=== PATIENT | male | born 1960 | race Caucasian/White ===

== ENCOUNTER 2018-10-03 05:43 | Inpatient (IN) | payer OTHER ==
[2018-10-02 10:19] VITALS: BMI 31.7
[2018-10-03] MEDS ORDERED: Sodium Chloride 0.9% 10 ML ONE (06:24)
[2018-10-03] MEDS ORDERED: Levofloxacin 500 mg/D5W 100 ml Premix Bag ONE (06:26)
[2018-10-03] MEDS ORDERED: Clindamycin/D5W 900 mg/50 ml Premix Bag ONE (06:26)
[2018-10-03 06:27] LABS: #Basophils 0.1 thou/uL (0.0-0.2); #Eosinphils 0.2 thou/uL (0.0-0.7); #Monocytes 0.6 thou/uL (0.11-0.59); %Basophils 1.2 % (0.0-1.0); %Eosinophils 4.1 % (0.0-10.0); %Lymphocytes 21.5 % (21.0-51.0); %Monocytes 11.3 % (0.0-10.0); %Neutrophils 61.8 % (42.0-75.0); Hemoglobin 15.8 g/dL (14.0-18.0); Mean Corpuscular HGB CONC 34.2 g/dL (32.0-36.0); Mean Corpuscular Hemoglobin 31.7 pg (27.0-31.0); Mean Corpuscular Volume 92.4 fL (78.0-98.0); Mean Platelet Volume 7.9 fL (7.4-10.4); Platelet Count 220 thou/uL (130-400); RBC Distribution Width 11.7 % (11.5-14.5); Red Blood Cell (RBC) Count 4.99 mill/uL (4.70-6.10); White Blood Cell (WBC) Count 4.8 thou/uL (4.8-10.8)
[2018-10-03 06:45] LABS: Anion Gap 12 mmol/L (10-20); BUN (Urea Nitrogen) 15 mg/dL (8.4-25.7); Calc. Creatinine Clearance 154 mL/min (70-130); Calcium 9.1 mg/dL (7.8-10.44); Carbon Dioxide 24 mmol/L (22-29); Chloride 109 mmol/L (98-107); Estimated GFR-MDRD Greater than 90; Glucose 100 mg/dL (70-105); Potassium 4.2 mmol/L (3.5-5.1); Sodium 141 mmol/L (136-145)
[2018-10-03] MEDS ORDERED: Midazolam HCl 2 mg/2 ml Vial ONE (06:53)
[2018-10-03] MEDS ORDERED: Fentanyl 250 MCG/5 ML VIAL ONE (06:53)
[2018-10-03] MEDS ORDERED: Lidocaine 4% Topical Sol 50 ML BOT ONE (06:53)
[2018-10-03] MEDS ORDERED: SUGAMMADEX SODIUM 200 MG/2 ML VIAL ONE (07:15)
[2018-10-03] MEDS ORDERED: HYDROmorphone 2 MG/ML VIAL ONE (08:52)
[2018-10-03] MEDS ORDERED: Sodium Chloride 0.9% 1,000 ML IV SCH (09:43)
[2018-10-03] MEDS ORDERED: Promethazine HCl 25 MG/ML VIAL IM PRN ×2 (09:43→10:56)
[2018-10-03] MEDS ORDERED: Promethazine 25 MG TAB PO PRN ×2 (09:43→10:56)
[2018-10-03] MEDS ORDERED: Milk Of Magnesia 30 ML UDCUP PO PRN ×2 (09:43→10:56)
[2018-10-03] MEDS ORDERED: diphenhydrAMINE 50 MG/ML VIAL IVP PRN ×2 (09:43→10:56)
[2018-10-03] MEDS ORDERED: HYDROcodone/Acetaminophen 10/325 mg Tablet PO PRN ×3 (09:43→10:56)
[2018-10-03] MEDS ORDERED: Morphine 4 MG/ML VIAL SLOW IVP PRN ×2 (09:43→10:56)
[2018-10-03] MEDS ORDERED: Promethazine HCl 12.5 MG SUPP PR PRN ×2 (09:43→10:56)
[2018-10-03] MEDS ORDERED: traMADol HCl 50 MG TAB PO PRN ×3 (09:43→10:56)
[2018-10-03] MEDS ORDERED: Ondansetron PF 4 MG/2 ML Vial IM PRN ×2 (09:43→10:56)
[2018-10-03] MEDS ORDERED: Mag-Al 1200 mg/1200 mg/30 ML UDCUP PO PRN ×2 (09:43→10:56)
[2018-10-03] MEDS ORDERED: diphenhydrAMINE 25 MG CAP PO PRN ×2 (09:43→10:56)
[2018-10-03] MEDS ORDERED: Fentanyl 100 MCG/2 ML VIAL ONE (10:04)
--- NOTE | 2018-10-03 10:37 | OP ---
DATE OF PROCEDURE: 10/03/2018 INSURANCE ANALYST: Laverne Cullen PA-C PROCEDURE PERFORMED: L4 through S1 decompressive laminectomy, posterolateral arthrodesis pedicle screw instrumentation, L4 through S1, demineralized bone matrix, local morselized autograft. DESCRIPTION OF PROCEDURE: The patient was brought to the operating room and intubated. He was rolled in a prone position on gel-filled chest rolls. An incision was made exposing L4 through S1, and the level was confirmed by x-ray. We performed complete L5 superior S1 and inferior L4 laminectomies completely decompressing the neural elements from L4 to S1. There were bilateral pars defects and loose posterior elements at L5 as anticipated. After complete decompression had been achieved, we placed pedicle screws at L4, L5, and S1 bilaterally using lateral fluoroscopic guidance. Justice was secured between the screws, which we obtained a very modest reduction and significant distraction across the L5 neuroforamen. The justice was connected with nuts, which were final tightened. The wound was then extensively irrigated and MAC hemostasis was secured. A combination of demineralized bone matrix local morselized autograft was laid over the lamina and posterolateral surfaces for the purpose of arthrodesis. Vancomycin powder was applied, and the wound was closed in anatomic layers over drain. Job ID: [id number]
[2018-10-03] MEDS: Pyridostigmine Bromide IR 60 MG TAB PO SCH (10:47)
[2018-10-03] MEDS: Sodium Chloride 0.9% 1,000 ML IV SCH (11:22)
[2018-10-03] MEDS ORDERED: Acetaminophen 500 MG TAB PO PRN (11:33)
[2018-10-03] MEDS ORDERED: hydrALAZINE 20 MG/ML VIAL SLOW IVP PRN (11:33)
[2018-10-03] MEDS ORDERED: Benzonatate 100 MG CAP PO PRN (11:33)
[2018-10-03] MEDS ORDERED: hydrOXYzine 25 MG TAB PO PRN (11:33)
[2018-10-03] MEDS ORDERED: Artificial Tears 18 DROP/0.9 ML EA EYE PRN (11:33)
[2018-10-03] MEDS ORDERED: Diabetic Tussin 200 MG/10 ML UDCUP PO PRN (11:33)
[2018-10-03] MEDS ORDERED: Bisacodyl 5 MG TAB PO PRN (11:33)
[2018-10-03] MEDS ORDERED: cloNIDine 0.1 MG TAB PO PRN (11:33)
[2018-10-03] MEDS ORDERED: Senokot S 8.6-50 MG TAB PO PRN (11:33)
--- NOTE | 2018-10-03 11:53 | PDOC.PN ---
- Subjective Encounter Start Date: 10/03/18 Encounter Start Time: 11:51 Subjective: Seen And examined.Admitted to NS.Post Lumbar laminectomy -: PMH of Myesthenia and HTN.follows up with Dr Johnson.stable -: no new complaints.feels well.POD #0 - Objective MAR Reviewed: Yes Vital Signs & Weight: Vital Signs (12 hours) Temp Pulse Resp BP Pulse Ox 10/03/18 11:35 63 20 123/60 99 10/03/18 10:59 58 L 18 128/68 94 L 10/03/18 10:51 94 L 10/03/18 10:30 97.7 F 66 20 128/73 94 L Weight Weight 247 lb Result Diagrams: 10/03/18 06:20 10/03/18 06:20 Phys Exam - Physical Examination Constitutional: NAD HEENT: PERRLA, moist MMs, sclera anicteric, oral pharynx no lesions Neck: no nodes, no JVD, supple, full ROM Respiratory: no wheezing, no rales, no rhonchi, clear to auscultation bilateral Cardiovascular: RRR, no significant murmur Gastrointestinal: soft, non-tender, no distention, positive bowel sounds Musculoskeletal: no edema, pulses present Neurological: non-focal, normal sensation, moves all 4 limbs Psychiatric: normal affect, A&O x 3 Skin: no rash Dx/Plan (1) Hypertension Code(s): I10 - ESSENTIAL (PRIMARY) HYPERTENSION Status: Chronic Comment: stable .restart Cozaar and HCTZ (2) Myasthenia gravis Code(s): G70.00 - MYASTHENIA GRAVIS WITHOUT (ACUTE) EXACERBATION Status: Chronic Comment: stable. restart Mestinon and Azathioprine (3) S/P lumbar laminectomy Code(s): Z98.890 - OTHER SPECIFIED POSTPROCEDURAL STATES Status: Acute Comment: pain control and PT,OT per Primary team - Plan plan discussed w/ family, PT/OT, DVT proph w/SCDs HD stable. -: am labs -: IM team will follow * . Review of Systems - Review of Systems Constitutional: negative: fever, chills, sweats, weakness, malaise, other ENT: negative: Ear Pain, Ear Discharge, Nose Pain, Nose Discharge, Nose Congestion, Mouth Pain, Mouth Swelling, Throat Pain, Throat Swelling, Other Respiratory: negative: Cough, Dry, Shortness of Breath, Hemoptysis, SOB with Excertion, Pleuritic Pain, Sputum, Wheezing Cardiovascular: negative: chest pain, palpitations, orthopnea, paroxysmal nocturnal dyspnea, edema, light headedness, other Gastrointestinal: negative: Nausea, Vomiting, Abdominal Pain, Diarrhea, Constipation, Melena, Hematochezia, Other Genitourinary: negative: Dysuria, Frequency, Incontinence, Hematuria, Retention , Other Neurological: negative: Weakness, Numbness, Incoordination, Change in Speech, Confusion, Seizures, Other - Medications/Allergies Allergies/Adverse Reactions: Allergies Allergy/AdvReac Type Severity Reaction Status Date / Time Penicillins Allergy Rash Verified 10/02/18 10:20 Ubbqarq-Nns-Gnt Reductase Allergy JOINT PAIN Verified 10/02/18 10:20 Inhibitor AND "FELT TERRIBLE" Medications: Current Medications Acetaminophen (Tylenol) 1,000 mg PO Q6H PRN PRN Reason: Mild Pain (1-3) Hydrocodone Bitart/Acetaminophen ([place] 10/325) 1 tab PO Q4H PRN PRN Reason: PAIN (1-3) Hydrocodone Bitart/Acetaminophen ([place] 10/325) 2 tab PO Q4H PRN PRN Reason: PAIN (4-6) Hydrocodone Bitart/Acetaminophen ([place] 10/325) 1 tab PO Q4H PRN PRN Reason: PAIN (1-3) Hydrocodone Bitart/Acetaminophen ([place] 10/325) 2 tab PO Q4H PRN PRN Reason: PAIN (4-6) Al Hydroxide/Mg Hydroxide (Maalox) 30 ml PO Q4H PRN PRN Reason: Heartburn or Indigestion Artificial Tears (Tears Naturale) 2 drop EA EYE PRN PRN PRN Reason: Dry Eyes Azathioprine (Imuran) 50 mg PO QAM [place] Benzonatate (Tessalon) 100 mg PO Q6H PRN PRN Reason: Cough Bisacodyl (Dulcolax) 10 mg PO DAILYPRN PRN PRN Reason: Constipation Clonidine (Catapres) 0.1 mg PO Q4H PRN PRN Reason: SBP >160 ____ Diphenhydramine HCl (Benadryl) 25 mg PO Q6H PRN PRN Reason: Itching Diphenhydramine HCl (Benadryl) 25 mg IVP Q6H PRN PRN Reason: Itching Gabapentin (Neurontin) 300 mg PO QAM [place] Guaifenesin (Robitussin Sf) 200 mg PO Q4H PRN PRN Reason: Cough Hydralazine HCl (Apresoline) 10 mg SLOW IVP Q4H PRN PRN Reason: SBP > 180 and HR < 70 Hydrochlorothiazide (Hydrochlorothiazide) 25 mg PO DAILY [place] Hydrochlorothiazide (Hydrochlorothiazide) 25 mg PO QAM [facility] Hydroxyzine HCl (Atarax) 25 mg PO Q6H PRN PRN Reason: Itching Sodium Chloride (Normal Saline 0.9%) 1,000 mls @ 75 mls/hr IV .[id number] [facility] Last Admin: 10/03/18 10:47 Dose: Not Given Clindamycin Phosphate/Dextrose (900 mg/ Device) 50 mls @ 100 mls/hr IVPB Q8HR [place] Sodium Chloride (Normal Saline 0.9%) 1,000 mls @ 75 mls/hr IV .[id number] [facility] Last Admin: 10/03/18 11:22 Dose: Not Given Cefazolin Sodium/Dextrose 2 gm (/ Device) 50 mls @ 100 mls/hr IVPB Q8HR [facility] Losartan Potassium (Cozaar) 50 mg PO DAILY [facility] Losartan Potassium (Cozaar) 50 mg PO DAILY [facility] Magnesium Hydroxide (Milk Of Magnesium) 30 ml PO Q12H PRN PRN Reason: Constipation Magnesium Hydroxide (Milk Of Magnesium) 30 ml PO Q12H PRN PRN Reason: Constipation Morphine Sulfate (Morphine) 2 mg SLOW IVP Q1H PRN PRN Reason: Moderate Breakthrough Pain Morphine Sulfate (Morphine) 4 mg SLOW IVP Q1H PRN PRN Reason: SEVERE BREAKTHROUGH PAIN Morphine Sulfate (Morphine) 2 mg SLOW IVP Q1H PRN PRN Reason: Moderate Breakthrough Pain Morphine Sulfate (Morphine) 4 mg SLOW IVP Q1H PRN PRN Reason: SEVERE BREAKTHROUGH PAIN Ondansetron HCl (Zofran) 4 mg IM Q24H PRN PRN Reason: Nausea/Vomiting Ondansetron HCl (Zofran) 4 mg IM Q24H PRN PRN Reason: Nausea/Vomiting Promethazine HCl (Phenergan) 12.5 mg IM Q4H PRN PRN Reason: Nausea/Vomiting Promethazine HCl (Phenergan) 12.5 mg PO Q4H PRN PRN Reason: Nausea/Vomiting Promethazine HCl (Phenergan Suppository) 12.5 mg GA Q4H PRN PRN Reason: Nausea/Vomiting Promethazine HCl (Phenergan) 12.5 mg IM Q4H PRN PRN Reason: Nausea/Vomiting Promethazine HCl (Phenergan) 12.5 mg PO Q4H PRN PRN Reason: Nausea/Vomiting Promethazine HCl (Phenergan Suppository) 12.5 mg GA Q4H PRN PRN Reason: Nausea/Vomiting Pyridostigmine [place] (Mestinon) [facility] [place] Last Admin: 10/03/18 10:47 Dose: Not Given Pyridostigmine [place] (Mestinon) 60 mg PO QAM [facility] Pyridostigmine [place] (Mestinon) [facility] [place] Senna/Docusate Sodium (Senokot S) 2 tab PO BID PRN PRN Reason: Constipation Sodium Chloride (Flush - Normal Saline) 10 ml IVF Q12HR [place] Sodium Chloride (Flush - Normal Saline) 10 ml IVF PRN PRN PRN Reason: Saline Flush Tramadol HCl (Ultram) 50 mg PO Q6H PRN PRN Reason: PAIN (1-3) Tramadol HCl (Ultram) 100 mg PO Q6H PRN PRN Reason: PAIN (4-6) Tramadol HCl (Ultram) 50 mg PO Q6H PRN PRN Reason: PAIN (1-3) Tramadol HCl (Ultram) 100 mg PO Q6H PRN PRN Reason: PAIN (4-6)
[2018-10-03] MEDS ORDERED: Rocuronium Bromide 10 MG/ML (10ML VIAL) ONE (12:21)
[2018-10-03] MEDS ORDERED: Ketorolac Tromethamine 30 MG/ML VIAL ONE (12:21)
[2018-10-03] MEDS ORDERED: PROPOFOL 200 MG/20 ML VIAL ONE (12:21)
[2018-10-03] MEDS ORDERED: Ondansetron PF 4 MG/2 ML Vial ONE (12:21)
[2018-10-03] MEDS ORDERED: Lidocaine 1% PF 5 ML VIAL ONE (12:21)
[2018-10-03] MEDS ORDERED: ePHEDrine 50 MG/ML VIAL ONE (12:21)
[2018-10-03] MEDS ORDERED: Dexamethasone 20 MG/5 ML VIAL ONE (12:21)
[2018-10-03] MEDS: CEFAZOLIN 2 GM in Premix Bag 1 BAG IVPB SCH ×2 (13:15→21:26)
[2018-10-03] MEDS: Clindamycin/D5W 900 MG in Premix Bag 1 BAG IVPB SCH ×2 (13:54→23:23)
[2018-10-03] MEDS: HYDROcodone/Acetaminophen 10/325 mg Tablet PO PRN ×2 (14:15→21:19)
[2018-10-04] MEDS: Sodium Chloride 0.9% 1,000 ML IV SCH ×2 (01:00→12:08)
[2018-10-04] MEDS: CEFAZOLIN 2 GM in Premix Bag 1 BAG IVPB SCH ×3 (05:31→21:49)
[2018-10-04] MEDS: HYDROcodone/Acetaminophen 10/325 mg Tablet PO PRN ×2 (06:14→21:49)
[2018-10-04] MEDS: Clindamycin/D5W 900 MG in Premix Bag 1 BAG IVPB SCH ×3 (06:16→23:13)
[2018-10-04 06:49] LABS: #Lymphocytes 1.1 thou/uL (1.20-3.40); #Neutrophils 8.9 thou/uL (1.40-6.50); %Basophils 0.1 % (0.0-1.0); %Eosinophils 0.1 % (0.0-10.0); %Lymphocytes 9.7 % (21.0-51.0); %Monocytes 9.3 % (0.0-10.0); %Neutrophils 80.7 % (42.0-75.0); Hemoglobin 14.1 g/dL (14.0-18.0); Mean Corpuscular HGB CONC 33.7 g/dL (32.0-36.0); Mean Corpuscular Hemoglobin 31.5 pg (27.0-31.0); Mean Corpuscular Volume 93.5 fL (78.0-98.0); Mean Platelet Volume 8.3 fL (7.4-10.4); Platelet Count 214 thou/uL (130-400); RBC Distribution Width 11.7 % (11.5-14.5); Red Blood Cell (RBC) Count 4.48 mill/uL (4.70-6.10); White Blood Cell (WBC) Count 11.1 thou/uL (4.8-10.8)
[2018-10-04 07:09] LABS: Anion Gap 11 mmol/L (10-20); BUN (Urea Nitrogen) 13 mg/dL (8.4-25.7); Calc. Creatinine Clearance 144 mL/min (70-130); Calcium 9.1 mg/dL (7.8-10.44); Carbon Dioxide 30 mmol/L (22-29); Chloride 107 mmol/L (98-107); Estimated GFR-MDRD 87; Glucose 102 mg/dL (70-105); Potassium 4.8 mmol/L (3.5-5.1); Sodium 143 mmol/L (136-145)
[2018-10-04] MEDS: Gabapentin 300 MG CAP PO SCH (07:25)
[2018-10-04] MEDS: azaTHIOprine 50 MG TAB PO SCH (07:27)
[2018-10-04] MEDS: Losartan 25 MG TAB PO SCH (07:27)
[2018-10-04] MEDS: Pyridostigmine Bromide IR 60 MG TAB PO SCH ×2 (07:27→07:30)
[2018-10-04] MEDS: Hydrochlorothiazide 25 MG TAB PO SCH (08:33)
[2018-10-04] MEDS ORDERED: Losartan 25 MG TAB PO SCH (09:00)
[2018-10-04] MEDS ORDERED: Gabapentin 300 MG CAP PO SCH (09:00)
[2018-10-04] MEDS ORDERED: Hydrochlorothiazide 25 MG TAB PO SCH (09:00)
[2018-10-04] MEDS ORDERED: azaTHIOprine 50 MG TAB PO SCH (09:00)
[2018-10-04] MEDS ORDERED: Pyridostigmine Bromide IR 60 MG TAB PO SCH (09:00)
--- NOTE | 2018-10-04 10:49 | PDOC.PN ---
- Subjective Encounter Start Date: 10/04/18 Encounter Start Time: 08:10 -: old records requested/rev Patient seen and examined. No new complaints. No overnight events his back pain controlled, he has drain in place, no diplopia or difficulty swallowing or weakness - Objective MAR Reviewed: Yes Vital Signs & Weight: Vital Signs (12 hours) Temp Pulse Resp BP BP Pulse Ox 10/04/18 08:30 124/68 10/04/18 08:01 97.7 F 62 20 109/59 L 97 10/04/18 05:29 98.0 F 70 18 118/58 L 10/03/18 23:23 98.2 F 65 16 110/55 L Weight Weight 247 lb I&O: 10/03/18 10/04/18 10/05/18 06:59 06:59 06:59 Intake Total 1000 Output Total 1090 Balance -90 Result Diagrams: 10/04/18 06:16 10/04/18 06:16 Phys Exam - Physical Examination Constitutional: NAD HEENT: PERRLA, moist MMs, sclera anicteric Neck: no JVD, supple Respiratory: no wheezing, no rales, no rhonchi Cardiovascular: RRR, no significant murmur, no rub Gastrointestinal: soft, non-tender, no distention, positive bowel sounds surgical site with dressing and DIEGO drain Musculoskeletal: no edema, pulses present Neurological: non-focal, normal sensation, moves all 4 limbs Lymphatic: no nodes Psychiatric: normal affect, A&O x 3 Skin: no rash, normal turgor Dx/Plan (1) S/P lumbar laminectomy Code(s): Z98.890 - OTHER SPECIFIED POSTPROCEDURAL STATES Status: Acute Comment: pain control and PT,OT per Primary team (2) Hypertension Code(s): I10 - ESSENTIAL (PRIMARY) HYPERTENSION Status: Chronic Comment: stable. continue Cozaar and HCTZ (3) Myasthenia gravis Code(s): G70.00 - MYASTHENIA GRAVIS WITHOUT (ACUTE) EXACERBATION Status: Chronic Comment: stable. continue Mestinon and Azathioprine (4) Obesity (BMI 30.0-34.9) Code(s): E66.9 - OBESITY, UNSPECIFIED Status: Chronic - Plan cont current plan of care, plan discussed w/ family * medication reviewed as below * symptomatic treatment * medically stable * drain removal when output reduce * pain controlled. Review of Systems - Review of Systems ENT: negative: Ear Pain, Ear Discharge, Nose Pain, Nose Discharge, Nose Congestion, Mouth Pain, Mouth Swelling, Throat Pain, Throat Swelling, Other Respiratory: negative: Cough, Dry, Shortness of Breath, Hemoptysis, SOB with Excertion, Pleuritic Pain, Sputum, Wheezing Cardiovascular: negative: chest pain, palpitations, orthopnea, paroxysmal nocturnal dyspnea, edema, light headedness, other Gastrointestinal: negative: Nausea, Vomiting, Abdominal Pain, Diarrhea, Constipation, Melena, Hematochezia, Other Genitourinary: negative: Dysuria, Frequency, Incontinence, Hematuria, Retention , Other Musculoskeletal: negative: Neck Pain, Shoulder Pain, Arm Pain, Back Pain, Hand Pain, Leg Pain, Foot Pain, Other - Medications/Allergies Allergies/Adverse Reactions: Allergies Allergy/AdvReac Type Severity Reaction Status Date / Time Penicillins Allergy Rash Verified 10/02/18 10:20 Itejxcv-Uyh-Prc Reductase Allergy JOINT PAIN Verified 10/02/18 10:20 Inhibitor AND "FELT TERRIBLE" Medications: Current Medications Acetaminophen (Tylenol) 1,000 mg PO Q6H PRN PRN Reason: Mild Pain (1-3) Hydrocodone Bitart/Acetaminophen ([place] 10/325) 1 tab PO Q4H PRN PRN Reason: PAIN (1-3) Hydrocodone Bitart/Acetaminophen ([place] 10/325) 2 tab PO Q4H PRN PRN Reason: PAIN (4-6) Last Admin: 10/04/18 06:14 Dose: 2 tab Al Hydroxide/Mg Hydroxide (Maalox) 30 ml PO Q4H PRN PRN Reason: Heartburn or Indigestion Artificial Tears (Tears Naturale) 2 drop EA EYE PRN PRN PRN Reason: Dry Eyes Azathioprine (Imuran) [facility] [place] Admin: 10/04/18 07:27 Dose: 50 mg Benzonatate (Tessalon) 100 mg PO Q6H PRN PRN Reason: Cough Bisacodyl (Dulcolax) 10 mg PO DAILYPRN PRN PRN Reason: Constipation Clonidine (Catapres) 0.1 mg PO Q4H PRN PRN Reason: SBP >160 ____ Diphenhydramine HCl (Benadryl) 25 mg PO Q6H PRN PRN Reason: Itching Diphenhydramine HCl (Benadryl) 25 mg IVP Q6H PRN PRN Reason: Itching Gabapentin (Neurontin) 300 mg PO QAM [facility] Last Admin: 10/04/18 07:25 Dose: 300 mg Guaifenesin (Robitussin Sf) 200 mg PO Q4H PRN PRN Reason: Cough Hydralazine HCl (Apresoline) 10 mg SLOW IVP Q4H PRN PRN Reason: SBP > 180 and HR < 70 Hydrochlorothiazide (Hydrochlorothiazide) 25 mg PO DAILY [facility] Last Admin: 10/04/18 08:33 Dose: 25 mg Hydroxyzine HCl (Atarax) 25 mg PO Q6H PRN PRN Reason: Itching Clindamycin Phosphate/Dextrose (900 mg/ Device) 50 mls @ 100 mls/hr IVPB Q8HR [facility] Last Admin: 10/04/18 06:16 Dose: 50 mls Sodium Chloride (Normal Saline 0.9%) 1,000 mls @ 75 mls/hr IV .[id number] [facility] Last Admin: 10/04/18 01:00 Dose: Not Given Cefazolin Sodium/Dextrose 2 gm (/ Device) 50 mls @ 100 mls/hr IVPB Q8HR [facility] Last Admin: 10/04/18 05:31 Dose: 50 mls Losartan Potassium (Cozaar) 50 mg PO DAILY [facility] Last Admin: 10/04/18 07:27 Dose: 50 mg Magnesium Hydroxide (Milk Of Magnesium) 30 ml PO Q12H PRN PRN Reason: Constipation Morphine Sulfate (Morphine) 2 mg SLOW IVP Q1H PRN PRN Reason: Moderate Breakthrough Pain Morphine Sulfate (Morphine) 4 mg SLOW IVP Q1H PRN PRN Reason: SEVERE BREAKTHROUGH PAIN Ondansetron HCl (Zofran) 4 mg IM Q24H PRN PRN Reason: Nausea/Vomiting Promethazine HCl (Phenergan) 12.5 mg IM Q4H PRN PRN Reason: Nausea/Vomiting Promethazine HCl (Phenergan) 12.5 mg PO Q4H PRN PRN Reason: Nausea/Vomiting Promethazine HCl (Phenergan Suppository) 12.5 mg OR Q4H PRN PRN Reason: Nausea/Vomiting Pyridostigmine [place] (Mestinon) [facility] [place] Last Admin: 10/04/18 07:27 Dose: Not Given Pyridostigmine [place] (Mestinon) 60 [facility] [place] Last Admin: 10/04/18 07:30 Dose: 60 mg Senna/Docusate Sodium (Senokot S) 2 tab PO BID PRN PRN Reason: Constipation Sodium Chloride (Flush - Normal Saline) 10 ml IVF Q12HR [facility] Last Admin: 10/04/18 07:11 Dose: Not Given Sodium Chloride (Flush - Normal Saline) 10 ml IVF PRN PRN PRN Reason: Saline Flush Tramadol HCl (Ultram) 50 mg PO Q6H PRN PRN Reason: PAIN (1-3) Tramadol HCl (Ultram) 100 mg PO Q6H PRN PRN Reason: PAIN (4-6)
[2018-10-04] MEDS: traMADol HCl 50 MG TAB PO PRN (12:03)
[2018-10-05] MEDS: Sodium Chloride 0.9% 1,000 ML IV SCH ×2 (00:09→16:35)
[2018-10-05] MEDS: HYDROcodone/Acetaminophen 10/325 mg Tablet PO PRN ×3 (04:39→18:53)
[2018-10-05] MEDS: CEFAZOLIN 2 GM in Premix Bag 1 BAG IVPB SCH ×3 (05:33→21:37)
[2018-10-05] MEDS: Clindamycin/D5W 900 MG in Premix Bag 1 BAG IVPB SCH ×3 (06:27→22:34)
--- NOTE | 2018-10-05 07:46 | PRG ---
DATE OF SERVICE: 10/05/2018 The patient is a 57-year-old male, postoperative day #2, status post L4 to S1 decompression and fusion. Following the surgery, he was transitioned to the floor, where his pain has been well-controlled with p.o. medications. He has been tolerating a regular diet and voiding appropriately. He has been ambulating up and down the halls and has been seen by PT, who reports he is doing great and discharged from their care. He does have a DIEGO drain and has had rather high output, 145 mL overnight. On exam this morning, the patient is awake and alert, in no acute distress. He has free active range of motion of all extremities. No focal motor weakness. No reflex asymmetry. His incision is clean, dry, and intact. DIEGO drain is in place with dark red blood in the fold. The patient is otherwise doing great, mobilized appropriately. We will continue to monitor his DIEGO output and I anticipate that as it trends downward, it can be removed and discharged and he could be discharged home in likely 1 to 2 days. I have discussed home care and precautions for when he does go home at some point. He has prescriptions for Keflex and Leola in the chart. Job ID: [id number]
[2018-10-05] MEDS: Gabapentin 300 MG CAP PO SCH (10:09)
[2018-10-05] MEDS: Pyridostigmine Bromide IR 60 MG TAB PO SCH ×2 (10:09→10:11)
[2018-10-05] MEDS: Hydrochlorothiazide 25 MG TAB PO SCH (10:10)
[2018-10-05] MEDS: azaTHIOprine 50 MG TAB PO SCH (10:10)
[2018-10-05] MEDS: Losartan 25 MG TAB PO SCH (10:10)
--- NOTE | 2018-10-05 12:42 | PDOC.PN ---
- Subjective Encounter Start Date: 10/05/18 Encounter Start Time: 08:30 Patient seen and examined. No new complaints. No overnight events - Objective MAR Reviewed: Yes Vital Signs & Weight: Vital Signs (12 hours) Temp Pulse Resp BP Pulse Ox 10/05/18 11:29 97.7 F 76 20 141/70 H 10/05/18 08:00 97.8 F 69 20 123/65 95 10/05/18 04:39 98.4 F 76 16 119/57 L Weight Weight 247 lb I&O: 10/04/18 10/05/18 10/06/18 06:59 06:59 06:59 Intake Total 1000 300 Output Total 1090 255 70 Balance -90 45 -70 Result Diagrams: 10/04/18 06:16 10/04/18 06:16 Phys Exam - Physical Examination Constitutional: NAD HEENT: PERRLA, moist MMs, sclera anicteric Neck: no JVD, supple Respiratory: no wheezing, no rales, no rhonchi Cardiovascular: RRR, no significant murmur, no rub Gastrointestinal: soft, non-tender, no distention, positive bowel sounds Musculoskeletal: no edema, pulses present Neurological: non-focal, normal sensation, moves all 4 limbs Lymphatic: no nodes Psychiatric: normal affect, A&O x 3 Skin: no rash, normal turgor Dx/Plan (1) S/P lumbar laminectomy Code(s): Z98.890 - OTHER SPECIFIED POSTPROCEDURAL STATES Status: Acute Comment: pain control and PT,OT per Primary team (2) Hypertension Code(s): I10 - ESSENTIAL (PRIMARY) HYPERTENSION Status: Chronic Comment: stable. continue Cozaar and HCTZ (3) Myasthenia gravis Code(s): G70.00 - MYASTHENIA GRAVIS WITHOUT (ACUTE) EXACERBATION Status: Chronic Comment: stable. continue Mestinon and Azathioprine (4) Obesity (BMI 30.0-34.9) Code(s): E66.9 - OBESITY, UNSPECIFIED Status: Chronic - Plan cont current plan of care, plan discussed w/ family, PT/OT * medication reviewed as below * symptomatic treatment * still has more output in drain, will defer to surgeon * medically stable. Review of Systems - Review of Systems ENT: negative: Ear Pain, Ear Discharge, Nose Pain, Nose Discharge, Nose Congestion, Mouth Pain, Mouth Swelling, Throat Pain, Throat Swelling, Other Respiratory: negative: Cough, Dry, Shortness of Breath, Hemoptysis, SOB with Excertion, Pleuritic Pain, Sputum, Wheezing Cardiovascular: negative: chest pain, palpitations, orthopnea, paroxysmal nocturnal dyspnea, edema, light headedness, other Gastrointestinal: negative: Nausea, Vomiting, Abdominal Pain, Diarrhea, Constipation, Melena, Hematochezia, Other Genitourinary: negative: Dysuria, Frequency, Incontinence, Hematuria, Retention , Other Musculoskeletal: negative: Neck Pain, Shoulder Pain, Arm Pain, Back Pain, Hand Pain, Leg Pain, Foot Pain, Other - Medications/Allergies Allergies/Adverse Reactions: Allergies Allergy/AdvReac Type Severity Reaction Status Date / Time Penicillins Allergy Rash Verified 10/02/18 10:20 Jmygcal-Eoi-Zzn Reductase Allergy JOINT PAIN Verified 10/02/18 10:20 Inhibitor AND "FELT TERRIBLE" Medications: Current Medications Acetaminophen (Tylenol) 1,000 mg PO Q6H PRN PRN Reason: Mild Pain (1-3) Hydrocodone Bitart/Acetaminophen ([place] 10/325) 1 tab PO Q4H PRN PRN Reason: PAIN (1-3) Last Admin: 10/04/18 15:45 Dose: 1 tab Hydrocodone Bitart/Acetaminophen ([place] 10/325) 2 tab PO Q4H PRN PRN Reason: PAIN (4-6) Last Admin: 10/05/18 10:13 Dose: 2 tab Al Hydroxide/Mg Hydroxide (Maalox) 30 ml PO Q4H PRN PRN Reason: Heartburn or Indigestion Artificial Tears (Tears Naturale) 2 drop EA EYE PRN PRN PRN Reason: Dry Eyes Azathioprine (Imuran) 50 mg PO [facility] Last Admin: 10/05/18 10:10 Dose: 50 mg Benzonatate (Tessalon) 100 mg PO Q6H PRN PRN Reason: Cough Bisacodyl (Dulcolax) 10 mg PO DAILYPRN PRN PRN Reason: Constipation Clonidine (Catapres) 0.1 mg PO Q4H PRN PRN Reason: SBP >160 ____ Diphenhydramine HCl (Benadryl) 25 mg PO Q6H PRN PRN Reason: Itching Diphenhydramine HCl (Benadryl) 25 mg IVP Q6H PRN PRN Reason: Itching Gabapentin (Neurontin) 300 mg PO QAM [facility] Last Admin: 10/05/18 10:09 Dose: 300 mg Guaifenesin (Robitussin Sf) 200 mg PO Q4H PRN PRN Reason: Cough Hydralazine HCl (Apresoline) 10 mg SLOW IVP Q4H PRN PRN Reason: SBP > 180 and HR < 70 Hydrochlorothiazide (Hydrochlorothiazide) 25 mg PO DAILY [facility] Last Admin: 10/05/18 10:10 Dose: 25 mg Hydroxyzine HCl (Atarax) 25 mg PO Q6H PRN PRN Reason: Itching Clindamycin Phosphate/Dextrose (900 mg/ Device) 50 mls @ 100 mls/hr IVPB Q8HR [facility] Last Admin: 10/05/18 06:27 Dose: 50 mls Sodium Chloride (Normal Saline 0.9%) 1,000 mls @ 75 mls/hr IV .[id number] [facility] Last Admin: 10/05/18 00:09 Dose: Not Given Cefazolin Sodium/Dextrose 2 gm (/ Device) 50 mls @ 100 mls/hr IVPB Q8HR [facility] Last Admin: 10/05/18 05:33 Dose: 50 mls Losartan Potassium (Cozaar) 50 mg PO DAILY [facility] Last Admin: 10/05/18 10:10 Dose: 50 mg Magnesium Hydroxide (Milk Of Magnesium) 30 ml PO Q12H PRN PRN Reason: Constipation Morphine Sulfate (Morphine) 2 mg SLOW IVP Q1H PRN PRN Reason: Moderate Breakthrough Pain Morphine Sulfate (Morphine) 4 mg SLOW IVP Q1H PRN PRN Reason: SEVERE BREAKTHROUGH PAIN Ondansetron HCl (Zofran) 4 mg IM Q24H PRN PRN Reason: Nausea/Vomiting Promethazine HCl (Phenergan) 12.5 mg IM Q4H PRN PRN Reason: Nausea/Vomiting Promethazine HCl (Phenergan) 12.5 mg PO Q4H PRN PRN Reason: Nausea/Vomiting Promethazine HCl (Phenergan Suppository) 12.5 mg MD Q4H PRN PRN Reason: Nausea/Vomiting Pyridostigmine [place] (Mestinon) [facility] [place] Last Admin: 10/05/18 10:09 Dose: 90 mg Pyridostigmine [place] (Mestinon) 60 mg PO QAM [facility] Last Admin: 10/05/18 10:11 Dose: 60 mg Senna/Docusate Sodium (Senokot S) 2 tab PO BID PRN PRN Reason: Constipation Sodium Chloride (Flush - Normal Saline) 10 ml IVF Q12HR [facility] Last Admin: 10/05/18 10:11 Dose: Not Given Sodium Chloride (Flush - Normal Saline) 10 ml IVF PRN PRN PRN Reason: Saline Flush Tramadol HCl (Ultram) 50 mg PO Q6H PRN PRN Reason: PAIN (1-3) Tramadol HCl (Ultram) 100 mg PO Q6H PRN PRN Reason: PAIN (4-6) Last Admin: 10/04/18 12:03 Dose: 100 mg
[2018-10-06] MEDS: HYDROcodone/Acetaminophen 10/325 mg Tablet PO PRN ×2 (01:38→06:38)
[2018-10-06] MEDS: Sodium Chloride 0.9% 1,000 ML IV SCH (03:36)
[2018-10-06] MEDS: CEFAZOLIN 2 GM in Premix Bag 1 BAG IVPB SCH (05:20)
[2018-10-06] MEDS: Clindamycin/D5W 900 MG in Premix Bag 1 BAG IVPB SCH (06:35)
[2018-10-06] MEDS: Pyridostigmine Bromide IR 60 MG TAB PO SCH ×2 (07:17→08:33)
[2018-10-06 07:55] VITALS: BP 130/64
[2018-10-06] MEDS: azaTHIOprine 50 MG TAB PO SCH (08:33)
[2018-10-06] MEDS: Gabapentin 300 MG CAP PO SCH (08:33)
[2018-10-06] MEDS: Hydrochlorothiazide 25 MG TAB PO SCH (08:33)
[2018-10-06] MEDS: Losartan 25 MG TAB PO SCH (08:34)
[2018-10-06 08:37] VITALS: TEMP 99.6
[2018-10-06] MEDS: traMADol HCl 50 MG TAB PO PRN (09:43)
--- NOTE | 2018-10-06 09:59 | DIS ---
DATE OF ADMISSION: 10/04/2018 DATE OF DISCHARGE: 10/06/2018 The patient is a 57-year-old male, who is status post L4 to S1 decompression and fusion on 10/03/2018. Following the surgery, he was transitioned to the Med/Surg floor. His pain has been well controlled and he is requiring minimal pain medications. He is tolerating a regular diet and voiding appropriately. He has been working with PT and ambulating easily throughout the hallways. Incision has remained dry and intact. His DIEGO output trended downward over the first 2 days and was removed on postoperative day #3. On exam this morning, he is awake, alert, in no acute distress. Free active range of motion of all extremities. No focal motor weakness. Incision clean, dry, and intact. We will plan to remove his DIEGO drain and dismiss the patient to home. I have discussed home care precautions. We will follow up with him in 2 weeks. Job ID: [id number]
--- NOTE | 2018-10-06 13:04 | PRG ---
DATE OF SERVICE: DISCHARGE DISPOSITION: Home. PRIMARY DISCHARGE DIAGNOSIS: L4-S1 decompression and fusion. SECONDARY DISCHARGE DIAGNOSIS: Myasthenia gravis, hypertension, obesity with BMI 31. PRIMARY PROCEDURE/OPERATION: Dr. Matias did L4-S1 decompressive laminectomy. SIGNIFICANT LABORATORY DATA: WBC 11.1, hemoglobin 14.1, platelets 214. Sodium 143, potassium 4.8, BUN 13, creatinine 0.90, calcium 9.1. DISCHARGE MEDICATIONS: 1. Imuran 50 mg p.o. daily. 2. Gabapentin 300 mg p.o. daily. 3. Hydrochlorothiazide 25 mg p.o. daily. 4. Losartan 50 mg p.o. daily. 5. Mestinon 60 mg p.o. daily. CONTRAINDICATION: None. CODE STATUS: Full code. 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 Matias was primary. Sound Team was consulted for medical comanagement. TEST RESULT PENDING ON DISCHARGE: None. ALLERGIES: PENICILLIN AND STATIN. DISCHARGE PLAN: Posthospital, the patient will follow up with Emma Quintanilla in 1 week and the patient will make appointment with Dr. Matias as instructed. HOSPITAL COURSE: A 57-year-old male, who has underlying chronic lumbar radiculopathy and he was admitted by Dr. Matias for lumbar laminectomy, which was done on October 03, 2018. Postoperatively, Sound Team was consulted for medical comanagement. After surgery, the patient had drain in place, which was draining for couple of days and that is why he stayed in the hospital. The patient did very well with Physical Therapy while in hospital. His pain was well controlled. Today, his drain was removed by primary team and the patient was planned for discharge today. PHYSICAL EXAMINATION: GENERAL: The patient is seen and examined at bedside today. VITAL SIGNS: His vitals are stable. Currently, temperature 98.5, pulse 78, respiratory rate 16, saturation 99% on room air, blood pressure 124/66, and weight 247 pounds. GENERAL: The patient is alert, oriented, no acute distress. HEENT: Head, normocephalic and atraumatic. LUNGS: Clear to auscultation without any rhonchi. CARDIAC: S1 and S2, regular without any murmur. ABDOMEN: Soft and benign. EXTREMITIES: No edema. NEUROLOGIC: Nonfocal examination. Overall, the patient is medically stable for discharge today. We will sign off. Job ID: [id number]
== END 2018-10-06 10:09 | disposition home or self-care (01) | DRG 460 ==
LOC: SDC 05:43 → 3SE 10:29 → OBSVTOIN 10-04 11:14
PROVIDERS: ADMIT Neurological Surgery; ATTEND Neurological Surgery
PROC: 0SG0071 Fusion of Lumbar Vertebral Joint with Autologous Tissue Substitute, Posterior Approach, Posterior Column, Open Approach (ICD-10-PCS; principal; 2018-10-03)
PROC: 0SG3071 Fusion of Lumbosacral Joint with Autologous Tissue Substitute, Posterior Approach, Posterior Column, Open Approach (ICD-10-PCS; 2018-10-03)
DX: M43.16 Spondylolisthesis, lumbar region (principal); G70.00 Myasthenia gravis without (acute) exacerbation; I10 Essential (primary) hypertension; E66.9 Obesity, unspecified; I25.10 Atherosclerotic heart disease of native coronary artery without angina pectoris; E78.5 Hyperlipidemia, unspecified; Z88.8 Allergy status to other drugs, medicaments and biological substances; Z88.0 Allergy status to penicillin; Z68.31 Body mass index [BMI] 31.0-31.9, adult; Z79.899 Other long term (current) drug therapy
CPT/HCPCS: 36415; 76000; 80048; 85025; 93005; 93010; C1713; C1768; J0131; J0690; J1100; J1170; J1885; J1956; J2001; J2250; J2270; J2405; J2704; J3010; J3370; J3490; J7500

== ENCOUNTER 2018-10-17 15:58 | Outpatient (CLI) | payer OTHER ==
--- NOTE | 2018-10-17 16:25 | RAD ---
THREE VIEWS OF THE LUMBOSACRAL SPINE: 10/17/18 COMPARISON: 06/08/18 HISTORY: Surgery two weeks ago for spondylolisthesis of the lumbar spine. 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 There is stable grade II anterolisthesis of L5 on S1. No perihardware tracy cency is seen. The patient has had laminectomies at L5. IMPRESSION: Postsurgical changes of the lumbar spine without evidence of complication. POS: KIKI
== END 2018-10-17 15:59 | disposition home or self-care (01) ==
LOC: TBSIIMAG 15:58
PROVIDERS: ATTEND Neurological Surgery
DX: M43.16 Spondylolisthesis, lumbar region (principal); Z98.890 Other specified postprocedural states
CPT/HCPCS: 72100

== ENCOUNTER 2018-11-23 15:06 | Outpatient (CLI) | payer OTHER ==
--- NOTE | 2018-11-23 15:19 | RAD ---
Exam: 2 views lumbar spine COMPARISON: 10/17/2018 HISTORY: Lumbar spondylosis. Status post surgery 8 weeks ago FINDINGS: Redemonstration of bilateral transpedicular screws at L3, L4 and L5. There is 1.7 cm of ant erolisthesis of L4 upon L5 (previously 1.7 cm). Stable laminectomy defect at L4 and L5. Vertebral body height is maintained. No fracture IMPRESSION: Stable lumbar fusion.
== END 2018-11-23 15:07 | disposition home or self-care (01) ==
LOC: TBSIIMAG 15:06
PROVIDERS: ATTEND Neurological Surgery
DX: M43.16 Spondylolisthesis, lumbar region (principal); Z98.1 Arthrodesis status
CPT/HCPCS: 72100

== ENCOUNTER 2021-11-03 09:36 | Outpatient (CLI) | payer BC | END 2021-11-03 09:37 | disposition home or self-care (01) | LOC: SCSMRI 09:36 | PROVIDERS: ATTEND Orthopaedic Surgery | DX: S46.012A Strain of muscle(s) and tendon(s) of the rotator cuff of left shoulder, initial encounter (principal); S46.112A Strain of muscle, fascia and tendon of long head of biceps, left arm, initial encounter; M62.512 Muscle wasting and atrophy, not elsewhere classified, left shoulder; M67.814 Other specified disorders of tendon, left shoulder; M19.012 Primary osteoarthritis, left shoulder; M25.412 Effusion, left shoulder ==

== ENCOUNTER 2024-12-17 10:07 | Outpatient (CLI) | payer BC | END 2024-12-17 10:08 | disposition home or self-care (01) | LOC: SCSRAD 10:07 | PROVIDERS: ATTEND Family Medicine | DX: Z01.818 Encounter for other preprocedural examination (principal) | CPT/HCPCS: 71046 ==